=== PATIENT | female | born 1985 | race Caucasian/White ===

== ENCOUNTER 2020-11-29 18:17 | Emergency (ER) | payer MEDICAID ==
[~2020-11-29] VITALS: Ht 160 cm; Wt 68.0 kg
[~2020-11-29 18:17] MED LIST: DIPH50CA37 PO; HYDR-4354 PO; PRED20TA PO
[2020-11-29] MEDS ORDERED: HYDR2TAB4 PO (18:39)
--- NOTE | 2020-11-29 18:39 | NUR ---
[email or web address], medical screening exam in progress.
[2020-11-29] MEDS ORDERED: ONDANSETRON ODT 4 MG TAB.RAPDIS SL ONE (18:45)
[2020-11-29] MEDS ORDERED: ONDA4TAB11 PO (18:47)
[2020-11-29] MEDS ORDERED: ONDANSETRON ODT 4 MG TAB.RAPDIS ONE (18:51)
--- NOTE | 2020-11-29 18:51 | NUR ---
Lights dimmed per patient's request.
--- NOTE | 2020-11-29 18:55 | NUR ---
Patient wants to leave and come back later, MD notified.
--- NOTE | 2020-11-29 19:49 | NUR ---
patient has not returned at this time. will close chart.
--- NOTE | 2020-11-29 19:50 | NUR ---
DC paperwork and rx in patient's chart ready for her if she returns to ER.
--- NOTE | 2020-11-29 22:52 | NUR ---
Patient returned for rx and dc paperwork. dc paperwork reviewed with patient and questions answered.
== END 2020-11-29 19:51 | disposition home or self-care (01) ==
LOC: ER 18:20
DX: R51.9 Headache, unspecified (principal); G89.29 Other chronic pain; F11.20 Opioid dependence, uncomplicated; Z92.21 Personal history of antineoplastic chemotherapy; Z92.3 Personal history of irradiation; C85.91 Non-Hodgkin lymphoma, unspecified, lymph nodes of head, face, and neck; Z88.8 Allergy status to other drugs, medicaments and biological substances
CPT/HCPCS: A4663; Q0162